=== PATIENT | male | born 1935 | race Caucasian/White ===

== ENCOUNTER 2016-09-28 11:52 | Emergency (ER) | payer MEDICARE, OTHER ==
[~2016-09-28 11:52] MED LIST: ASPIR-TRIN325 MG PO; AVODART 0.5 MG0.5 MG PO; BENICAR40 MG PO; CARBIDOPA-LEVO1 EAC6 PO; CATAPRES 0.1MG0.1 MG PO; CATAPRES 0.1MG0.1 MG TD; DOC-Q-LACE100 MG PO; FERROUS SULFAT325 M2 PO; FLOMAX 0.4 MG0.4 MG PO; HYDRALAZINE HCL50 MG PO; IMDUR ER TAB 6060 MG PO; LEVOTHYROXINE125 MCG PO; LOVAZA1 GM PO; NEURONTIN 100100 MG PO; NITROSTAT0.4 MG SL; NORVASC10 MG PO; PLAVIX 75 MG TA75 MG PO; PRESERVISION A1 EACH PO; PREVACID30 MG PO; REMERON15 MG PO; SPIRONOLACTONE50 MG PO; TOPROL XL 100100 MG PO; TRAMADOL HCL50 MG PO; TRAZODONE HCL50 MG PO; VITAMIN B12-FO1 EACH PO; VITAMIN D31000 UNI1 PO; ZYLOPRIM 100 M100 MG PO
[2016-09-28 14:41] LABS: HEMOGLOBIN 16.5 gm/dl (14.0-17.5); RED BLOOD COUNT 5.6 M/UL (4.20-5.50); WHITE BLOOD COUNT 7.9 K/UL (4.5-11.0)
[2016-09-28 14:57] LABS: BUN/CREATININE RATIO 10 (0-10)
== END 2016-09-28 17:00 | disposition home or self-care (01) ==
LOC: ER1 11:52
PROVIDERS: Family Medicine
DX: G62.9 Polyneuropathy, unspecified (principal); M54.5 Low back pain; G89.29 Other chronic pain; I10 Essential (primary) hypertension; Z88.8 Allergy status to other drugs, medicaments and biological substances; Z79.82 Long term (current) use of aspirin; Z79.02 Long term (current) use of antithrombotics/antiplatelets; Z79.899 Other long term (current) drug therapy
CPT/HCPCS: 36415; 71010; 72131; 73630; 80053; 81001; 84550; 85025; 99284

== ENCOUNTER → 2016-11-25 | Outpatient (CLI) | payer MEDICARE, OTHER ==
[~2016-11-25] MED LIST changes: +BACTRIM DS TAB1 EACH PO; +BUSPAR 5MG TABLE5 MG PO; +COZAAR25 MG PO; +FISH OIL 1,0001 EAC4 PO; +IMDUR ER TAB 3030 MG PO; +LORTAB 7.5-3251 EACH PO; +MULTI-BETIC TA1 EACH PO; +PRAVACHOL20 MG PO
== END ==
LOC: CT 08:23
DX: J32.8 Other chronic sinusitis (principal)
CPT/HCPCS: 70486

== ENCOUNTER 2016-12-21 16:18 | Inpatient (IN) | payer MEDICARE, OTHER ==
[~2016-12-21] VITALS: Ht 175.3 cm; Wt 98.0 kg
[~2016-12-21 16:18] MED LIST changes: -BACTRIM DS TAB1 EACH PO; -BUSPAR 5MG TABLE5 MG PO; -COZAAR25 MG PO; -FISH OIL 1,0001 EAC4 PO; -IMDUR ER TAB 3030 MG PO; -LORTAB 7.5-3251 EACH PO; -MULTI-BETIC TA1 EACH PO; -PRAVACHOL20 MG PO
[2016-12-21 18:46] LABS: RED BLOOD COUNT 4.69 M/UL (4.20-5.50); WHITE BLOOD COUNT 7.7 K/UL (4.5-11.0)
[2016-12-21 19:05] LABS: BUN/CREATININE RATIO 9 (0-10)
[2016-12-22] MEDS ORDERED: COZAAR25 MG PO (01:12)
[2016-12-22] MEDS ORDERED: FISH OIL 1,0001 EAC4 PO (01:13)
[2016-12-22] MEDS ORDERED: BUSPAR 5MG TABLE5 MG PO (01:13)
[2016-12-22] MEDS ORDERED: PRAVACHOL20 MG PO (01:13)
[2016-12-22] MEDS ORDERED: LORTAB 7.5-3251 EACH PO (01:14)
[2016-12-22] MEDS ORDERED: BACTRIM DS TAB1 EACH PO (01:15)
[2016-12-22 04:05] LABS: HEMOGLOBIN 12.3 gm/dl (14.0-17.5); RED BLOOD COUNT 4.15 M/UL (4.20-5.50); WHITE BLOOD COUNT 7.1 K/UL (4.5-11.0)
[2016-12-23 08:28] LABS: HEMOGLOBIN 12.6 gm/dl (14.0-17.5); RED BLOOD COUNT 4.24 M/UL (4.20-5.50); WHITE BLOOD COUNT 10.6 K/UL (4.5-11.0)
[2016-12-24 02:37] LABS: HEMOGLOBIN 11.3 gm/dl (14.0-17.5); RED BLOOD COUNT 3.88 M/UL (4.20-5.50)
[2016-12-24 02:47] LABS: WHITE BLOOD COUNT 7.6 K/UL (4.5-11.0)
[2016-12-24 19:58] LABS: BUN/CREATININE RATIO 18 (0-10)
[2016-12-25 01:27] LABS: BUN/CREATININE RATIO 19 (0-10)
[2016-12-25 06:00] LABS: HEMOGLOBIN 11.9 gm/dl (14.0-17.5); RED BLOOD COUNT 4.01 M/UL (4.20-5.50); WHITE BLOOD COUNT 6.8 K/UL (4.5-11.0)
[2016-12-25 06:16] LABS: BUN/CREATININE RATIO 17 (0-10)
[2016-12-25 14:47] LABS: BUN/CREATININE RATIO 18 (0-10)
[2016-12-25 22:48] LABS: BUN/CREATININE RATIO 18 (0-10)
[2016-12-26 06:32] LABS: BUN/CREATININE RATIO 16 (0-10)
[2016-12-27 16:40] LABS: HEMOGLOBIN 11.3 gm/dl (14.0-17.5); RED BLOOD COUNT 3.85 M/UL (4.20-5.50); WHITE BLOOD COUNT 6.8 K/UL (4.5-11.0)
[2016-12-27 16:59] LABS: BUN/CREATININE RATIO 16 (0-10)
[2016-12-29] MEDS ORDERED: IMDUR ER TAB 3030 MG PO (16:25)
[2016-12-29] MEDS ORDERED: MULTI-BETIC TA1 EACH PO (16:26)
== END 2016-12-29 17:55 | disposition home health service (06) | DRG 193 ==
LOC: ER1 16:18 → M/S 20:57 → ZEROF 20:57 → M/S 12-22 00:56
PROVIDERS: Internal Medicine; Internal Medicine Nephrology; Preventive Medicine Occupational Medicine; ADMIT Internal Medicine
DX: J18.9 Pneumonia, unspecified organism (principal); N17.0 Acute kidney failure with tubular necrosis; E87.1 Hypo-osmolality and hyponatremia; F05 Delirium due to known physiological condition; I10 Essential (primary) hypertension; E78.5 Hyperlipidemia, unspecified; G20 Parkinson's disease; E03.9 Hypothyroidism, unspecified; K21.9 Gastro-esophageal reflux disease without esophagitis; G57.93 Unspecified mononeuropathy of bilateral lower limbs; N40.1 Benign prostatic hyperplasia with lower urinary tract symptoms; N39.498 Other specified urinary incontinence; M10.9 Gout, unspecified; Z85.819 Personal history of malignant neoplasm of unspecified site of lip, oral cavity, and pharynx; Z79.02 Long term (current) use of antithrombotics/antiplatelets; Z79.82 Long term (current) use of aspirin; Z79.891 Long term (current) use of opiate analgesic; Z79.899 Other long term (current) drug therapy; Z88.6 Allergy status to analgesic agent; Z90.49 Acquired absence of other specified parts of digestive tract; Z98.890 Other specified postprocedural states
CPT/HCPCS: 36415; 70450; 71010; 71250; 80048; 80053; 80061; 81001; 82140; 82533; 82570; 82607; 83735; 83880; 83935; 84100; 84133; 84156; 84295; 84300; 84439; 84443; 85025; 85027; 87040; 87086; 87205; 94664; 96365; 97110; 97116; 97530; 97535; 99285; J0696; J1650; J1956; J2060; J7030; J7050